=== PATIENT | male | born 1965 | race Caucasian/White ===

== ENCOUNTER 2016-10-26 10:56 | Outpatient (CLI) | payer OTHER ==
[~2016-10-26] VITALS: Ht 167.6 cm; Wt 64.5 kg
[~2016-10-26 10:56] MED LIST: DOCU-144 PO; DORZ10DR22 BOTH EYES; GLIP2.5T14 PO; METF500T4 PO; OMEP40CA6 PO; SENN-53 PO; [UNRECOGNIZED DRUG - CODE] TOP
[2016-10-26 11:03] VITALS: BP 112/67; PULSE 67; RESP 16; Ht 167.6 cm; Wt 64.5 kg
--- NOTE | 2016-10-26 11:46 | CONS ---
Date/Time of Note Date/Time of Note DATE: 10/26/16 TIME: 11:45 Assessment/Plan Assessment/Plan Additional Assessment/Plan [facility] OUT[facility]IENT CONSULTATION NOTE DATE OF CONSULTATION: 10/26/2016 PLACE OF SERVICE: [facility]at[facility] at [facility]. IMPRESSION AND PLAN: A very 51-year-old gentleman well-known to me from partial hepatectomy that he underwent late in 2015 for hepatocellular carcinoma in the setting of hepatitis C cirrhosis, who is showing signs are concerning for development of further HCC in the right lobe of the liver (2 cm segment 8 lesion and a 1 cm seg 6/7 lesion). We require further images for full staging as well as repeat tumor markers. The available MRI from April 2016 shows characteristics that are not classic for HCC and for this reason, the patient may also need a liver biopsy. Once I have the above information, we can make further plans including possible liver directed therapy (TACE) as well as aggressive pursuit of transplant evaluation since I do not believe that the patient can tolerate further liver resection given the amount of cirrhosis that he had an degree of portal hypertension. I explained all of this with the help of a [facility] employed beef ribber to the patient and answered all of his questions. The patient appeared to understand and agreed with the plans. With above impression, I recommend the followin. Liver dedicated triple phase MRI of the abdomen with contrast. 2. Check tumor markers 3. Multidisciplinary tumor board presentation. 4. Possible need for liver biopsy 5. Possible TACE 6. Transplant evaluation 7. Follow up with us after MRI and labs were done Thank you again for allowing us to participate in the care of this very pleasant gentleman and his wonderful family. If there are any questions, please feel free to call me at [phone]. Nature of presenting problem: High risk Complexity of decision making: High complexity Updated Clinical Summary: The patient is a very pleasant, but unfortunate 51-year-old gentleman with comorbid issues including hepatitis C, cirrhosis who had been followed with surveillance images and noted to have elevated alpha fetoprotein of 25.1 and images that were concerning for a small hepatocellular carcinoma in the left lateral segment of his liver. The patient's platelet count of 88 indicated portal hypertension, but clinically he appeared to be doing better than what his numbers suggested. Note that patient had similar findings in 06/2015 and then in 10/2015. Liver-dedicated MRI of the liver on 01/24/16 showed an enhancing mass at lateral segment of left lobe liver measuring 3 cm in size, highly suspicious for hepatocellular carcinoma. Another small lesion was seen in the left lobe of the liver adjacent to the main lesion, approximately 0.8 cm in size, again suspicious for neoplastic lesion. Presence of cirrhosis was also noted. Possible regenerating nodules also seen in the right lobe. S/p an otherwise uncomplicated laparoscopic partial hepatectomy with removal of segment 2/3 (left lateral lobe) of the liver with intraoperative ultrasound of liver on 02/18/16 with findings of a single lesion in the left lateral lobe liver in the setting of significant cirrhosis and portal hypertension. Final pathology showed single 3.3 cm HCC, well differentiated, negative margins, within well established cirrhosis (stage 4, fibrosis) and grade 3, interface activity. Post op, patient did very well without any evidence for major post- operative complication, wound problems and without any evidence of obvious liver dysfunction and was discharged home on post operative day number 1. Was noted to have 2 new nodules in the right lobe of the liver that showed increase in size from March 2016 to October 2016. Comorbidities: 1. Hepatitis C, genotype 1B diagnosed in [address] [facility]. In 05/2015, his HCV RNA was 1,356,147 international units per mL. He has F4 fibrosis by FibroTest and good hepatic function with an INR of 1.1, albumin 3.5, and bilirubin 1.0. Platelet count 88,000. Mildly elevated AST and ALT at 107 and 53 respectively. Albumin is 3.5 in 08/2015. The spleen was 12.[address] scan in 06/2015. Above-mentioned lesion concerning for hepatocellular carcinoma. S/ p laparoscopic resection left lateral segment (2/3) with intraoperative ultrasound 02/18/16 at [facility]. 2. Hepatitis A immune. 3. Hepatitis B immune. 4. Elevated alpha-fetoprotein of 25.1 on 06/07/2015. 5. PTSD or posttraumatic stress disorder. 6. Headache. 7. Thyroid nodule. 8. Abdominal pain. 9. Glaucoma. 10. Diabetes mellitus. 11. Low ceruloplasmin level. 12. Cyst of the kidney. 13. Duodenitis. HISTORY OF PRESENT ILLNESS: The patient is a very pleasant 51-year-old gentleman gentleman with above-mentioned comorbidities whom we were kindly asked to consult regarding further management of newly discovered lesions in the right lobe of the liver. Patient is well-known to us from previous laparoscopic partial hepatectomy which revealed hepatocellular carcinoma in the setting of hepatitis C cirrhosis. Clinically, he has done well without any new symptoms. MRI April 24 2016 showed a 2.1 cm lesion within posterior segment of the right lobe of the liver that showed increase in size compared to prior examination when it measured 1.5 cm. This did not demonstrate typical pattern of a hypovascular hepatoma, but since it had increased in size the possibility of vascular hepatoma could not be excluded and a biopsy will was recommended to be considered. Since then, he has also had an ultrasound of the abdomen on 2016 that showed a coarse liver and echotexture with nodularity of the surface consistent with cirrhosis and 2 hypoechoic lesions in the right lobe of the liver measuring 1.0 and 2.0 cm. The spleen was thought to be prominent and small amount of ascites adjacent to the right lobe of the liver was found. Patient was referred to us for further evaluation of these 2 areas. No new complaints. No pain issues. Appetite has been good and no major change in weight. ALLERGIES: NO KNOWN DRUG ALLERGIES. MEDICATIONS: Carefully recorded and reviewed in the electronic medical record system SOCIAL HISTORY: The patient is currently unemployed. He has one child. He does not report significant smoking, drinking, or intravenous drug use. FAMILY HISTORY: There is history of diabetes, stroke, and high blood pressure in the family, but no malignancy or heart disease. REVIEW OF SYSTEMS: Other than the above-mentioned, there are no other significant pertinent positives and pertinent negatives in a complete 14-point review of systems. There are some issues with urination and issues with bloating and indigestion, history of hemorrhoids, difficulty with learning, and some bruisability. PHYSICAL EXAMINATION: GENERAL: The patient appears to be a very pleasant gentleman of perhaps [place] descent, appearing stated age, sitting in a chair comfortably and in no acute distress. BMI 23 (previously 04 February 2016). He is afebrile. VITAL SIGNS: Stable. HEENT: Normocephalic and atraumatic. His extraocular muscles and hearing are grossly intact bilaterally and symmetrically. His sclerae are nonicteric. His oral cavity is clear, and his oral mucosa appeared to be pink and moist. He has fair to poor dentition with some missing teeth. NECK: Supple. There is no lymphadenopathy or JVD. There is no submental, submandibular, or supraclavicular lymphadenopathy. CHEST: Rises symmetrically with each breath, and he is breathing comfortably. There are no audible wheezes, rales, or rhonchi on the gross exam. His carotid pulses are palpable bilaterally and symmetrically in his neck. HEART: His radial pulses palpable on the left wrist. EXTREMITIES: Lower extremities contain no pitting edema around the ankles bilaterally and symmetrically. ABDOMEN: Soft, nondistended, and for the most part nontender. I do not appreciate significant organomegaly issue and no evidence of ascites, caput medusae, or engorged subcutaneous veins. Incisions appear to be clean, dry, and intact without any evidence of erythema, edema, discharge, or hernia. There are no peritoneal signs or guarding. SKIN: Appears to be pink and feels warm to touch. NEUROLOGIC: He is awake, alert, and follows commands appropriately. LABORATORY VALUES: Pertinent findings were reviewed above. No recent laboratory values available to me today. IMAGING: Pertinent findings were reviewed above. Note that I personally reviewed these images and I agree in general with their overall reported findings. Consultation Date/Type/Reason Admit Date/Time Exam/Review of Systems Vital Signs Vitals Vital Signs Date Time Temp Pulse Resp B/P Pulse Ox O2 Delivery O2 Flow Rate FiO2 10/26/16 11:03 98.3 67 16 112/67 96 Room Air LALI YOU M.D. Oct 26, 2016 11:46 LALI YOU M.D. Oct 26, 2016 11:46
== END 2016-10-26 17:00 | disposition home or self-care (01) ==
LOC: HPC 10:56
PROVIDERS: ATTEND Transplant Surgery
DX: K76.9 Liver disease, unspecified (principal); K74.60 Unspecified cirrhosis of liver; B19.20 Unspecified viral hepatitis C without hepatic coma; E11.8 Type 2 diabetes mellitus with unspecified complications; H40.9 Unspecified glaucoma; Z83.3 Family history of diabetes mellitus; Z82.49 Family history of ischemic heart disease and other diseases of the circulatory system; Z82.3 Family history of stroke
CPT/HCPCS: G0463

== ENCOUNTER 2017-01-20 16:09 | Outpatient (CLI) | payer OTHER ==
[~2017-01-20] VITALS: Ht 167.6 cm; Wt 63.2 kg
[2017-01-20 16:17] VITALS: BP 114/70; PULSE 77; RESP 16; Ht 167.6 cm; Wt 63.2 kg
--- NOTE | 2017-01-20 18:12 | PN ---
Date/Time of Note Date/Time of Note DATE: 01/20/17 TIME: 17:54 Assessment/Plan Assessment/Plan Assessment/Plan [facility] OUT[facility]IENT CONSULTATION NOTE DATE OF CONSULTATION: 01/20/2017 PLACE OF SERVICE: Hepatobiliary and Pancreas Center at [facility]. IMPRESSION AND PLAN: Overall has remained stable. Repeat images from 12/04/2016 show findings consistent with cirrhosis. The hypovascular mass seen in the posterior segment of the right lobe of the liver still measured 2 cm and there was no change in it. There was no mention of the segment 6 lesion and no obvious concerning enhancing masses on the arterial phases of the MRI. Patient' s latest alpha-fetoprotein levels were also 10.8 on 11/24/2016. Interestingly, CA-19-9 levels on the same day 35 as well. Patient also had a recent upper endoscopy done that demonstrated varices that required banding. Overall, I do not detect obvious evidence of ongoing mass process in the liver and therefore, would only recommend close follow-up. Our plan at this point is to repeat his liver MRI as well as his tumor markers around May 2017 and re-presented his case in the multidisciplinary tumor board if there any concerning changes in his clinical picture. I explained all of this with the help of a [facility] employed machine builder to the patient and answered all of his questions. The patient appeared to understand and agreed with the plans. Previous assessments that apply today: A very 51-year-old gentleman well-known to me from partial hepatectomy that he underwent late in 2016 for hepatocellular carcinoma in the setting of hepatitis C cirrhosis, who was showing signs of concern for development of further HCC in the right lobe of the liver (2 cm segment 8 lesion and a 1 cm seg 6/7 lesion). We required further images for full staging as well as repeat tumor markers. The available MRI from April 2016 showsed characteristics that are not classic for HCC. With above impression, I recommend the followin. Liver dedicated triple phase MRI of the abdomen with contrast and tumor marker checks May 2017. 2. Multidisciplinary tumor board presentation after above 3. Continue treatment for liver cirrhosis Thank you again for allowing us to participate in the care of this very pleasant gentleman and his wonderful family. If there are any questions, please feel free to call me at [phone]. Nature of presenting problem: High risk Complexity of decision making: High complexity Updated Clinical Summary: The patient is a very pleasant, but unfortunate 51-year-old gentleman with comorbid issues including hepatitis C, cirrhosis who had been followed with surveillance images and noted to have elevated alpha fetoprotein of 25.1 and images that were concerning for a small hepatocellular carcinoma in the left lateral segment of his liver. The patient's platelet count of 88 indicated portal hypertension, but clinically he appeared to be doing better than what his numbers suggested. Note that patient had similar findings in 06/2015 and then in 10/2015. Liver-dedicated MRI of the liver on 01/24/16 showed an enhancing mass at lateral segment of left lobe liver measuring 3 cm in size, highly suspicious for hepatocellular carcinoma. Another small lesion was seen in the left lobe of the liver adjacent to the main lesion, approximately 0.8 cm in size, again suspicious for neoplastic lesion. Presence of cirrhosis was also noted. Possible regenerating nodules also seen in the right lobe. S/p an otherwise uncomplicated laparoscopic partial hepatectomy with removal of segment 2/3 (left lateral lobe) of the liver with intraoperative ultrasound of liver on 02/18/16 with findings of a single lesion in the left lateral lobe liver in the setting of significant cirrhosis and portal hypertension. Final pathology showed single 3.3 cm HCC, well differentiated, negative margins, within well established cirrhosis (stage 4, fibrosis) and grade 3, interface activity. Post op, patient did very well without any evidence for major post- operative complication, wound problems and without any evidence of obvious liver dysfunction and was discharged home on post operative day number 1. Was noted to have 2 new nodules in the right lobe of the liver that showed increase in size from March 2016 to October 2016. Repeat labs 11/24/16: CA 19-9 35. Repeat MRI w/[facility] 12/04/16 showed no major change in hypovascular mass in posterior R lobe of liver, 2 cm. Comorbidities: 1. Hepatitis C, genotype 1B diagnosed in 2011 in [facility]. In 05/2015, his HCV RNA was 1,356,147 international units per mL. He has F4 fibrosis by FibroTest and good hepatic function with an INR of 1.1, albumin 3.5, and bilirubin 1.0. Platelet count 88,000. Mildly elevated AST and ALT at 107 and 53 respectively. Albumin is 3.5 in 08/2015. The spleen was 12.[address] scan in 06/2015. Above-mentioned lesion concerning for hepatocellular carcinoma. S/ p laparoscopic resection left lateral segment (2/3) with intraoperative ultrasound 02/18/16 at [facility]. 2. Hepatitis A immune. 3. Hepatitis B immune. 4. Elevated alpha-fetoprotein of 25.1 on 06/07/2015. 5. PTSD or posttraumatic stress disorder. 6. Headache. 7. Thyroid nodule. 8. Abdominal pain. 9. Glaucoma. 10. Diabetes mellitus. 11. Low ceruloplasmin level. 12. Cyst of the kidney. 13. Duodenitis. 14. Repeat upper endoscopy at [facility] December 2016 with banding of varices HISTORY OF PRESENT ILLNESS: The patient is a very pleasant 51-year-old gentleman gentleman with above-mentioned comorbidities whom we were kindly asked to consult regarding ongoing management of lesions in the right lobe of the liver. Patient is well-known to us from previous laparoscopic partial hepatectomy which revealed hepatocellular carcinoma in the setting of hepatitis C cirrhosis. Clinically, he has done well without any new symptoms. He had the above-mentioned upper endoscopy at [facility]. No significant deterioration in his health. Appetite remains good. No significant changes in his weight. No changes in his bowel or bladder habits. He has some discomfort in the abdomen and he has been referred back to his primary care physician for further workup. ALLERGIES: NO KNOWN DRUG ALLERGIES. MEDICATIONS: Carefully recorded and reviewed in the electronic medical record system SOCIAL HISTORY: The patient is currently unemployed. He has one child. He does not report significant smoking, drinking, or intravenous drug use. FAMILY HISTORY: There is history of diabetes, stroke, and high blood pressure in the family, but no malignancy or heart disease. REVIEW OF SYSTEMS: Other than the above-mentioned, there are no other significant pertinent positives and pertinent negatives in a complete 14-point review of systems. There are some issues with urination and issues with bloating and indigestion, history of hemorrhoids, difficulty with learning, and some bruisability. PHYSICAL EXAMINATION: GENERAL: The patient appears to be a very pleasant gentleman of perhaps [place] descent, appearing stated age, sitting in a chair comfortably and in no acute distress. BMI 22.5 (previously 04 February 2016; 04 Nov 2016). He is afebrile. VITAL SIGNS: Stable. HEENT: Normocephalic and atraumatic. His extraocular muscles and hearing are grossly intact bilaterally and symmetrically. His sclerae are nonicteric. His oral cavity is clear, and his oral mucosa appeared to be pink and moist. He has fair to poor dentition with some missing teeth. NECK: Supple. There is no lymphadenopathy or JVD. There is no submental, submandibular, or supraclavicular lymphadenopathy. CHEST: Rises symmetrically with each breath, and he is breathing comfortably. There are no audible wheezes, rales, or rhonchi on the gross exam. His carotid pulses are palpable bilaterally and symmetrically in his neck. HEART: His radial pulses palpable on the left wrist. EXTREMITIES: Lower extremities contain no pitting edema around the ankles bilaterally and symmetrically. ABDOMEN: Soft, nondistended, and for the most part nontender. I do not appreciate significant organomegaly issue and no evidence of ascites, caput medusae, or engorged subcutaneous veins. Incisions appear to be clean, dry, and intact without any evidence of erythema, edema, discharge, or hernia. There are no peritoneal signs or guarding. SKIN: Appears to be pink and feels warm to touch. NEUROLOGIC: He is awake, alert, and follows commands appropriately. LABORATORY VALUES: Pertinent findings were reviewed above. No recent laboratory values available to me today. IMAGING: Pertinent findings were reviewed above. Note that I personally reviewed these images and I agree in general with their overall reported findings. Exam/Review of Systems Vital Signs Vitals Vital Signs Date Time Temp Pulse Resp B/P Pulse Ox O2 Delivery O2 Flow Rate FiO2 01/20/17 16:17 98.0 77 16 114/70 96 Room Air LALI YOU M.D. Jan 20, 2017 18:07
== END 2017-01-20 17:00 | disposition home or self-care (01) ==
LOC: HPC 16:09
PROVIDERS: ATTEND Transplant Surgery
DX: Z48.815 Encounter for surgical aftercare following surgery on the digestive system (principal); K76.9 Liver disease, unspecified; K74.60 Unspecified cirrhosis of liver; B19.20 Unspecified viral hepatitis C without hepatic coma; B15.9 Hepatitis A without hepatic coma; B19.10 Unspecified viral hepatitis B without hepatic coma; F43.10 Post-traumatic stress disorder, unspecified; E04.1 Nontoxic single thyroid nodule; R10.9 Unspecified abdominal pain; N28.1 Cyst of kidney, acquired
CPT/HCPCS: G0463